=== PATIENT | female | born 1995 | race Caucasian/White ===

== ENCOUNTER 2016-12-02 10:46 | Emergency (ER) | payer BC, MEDICAID ==
--- OUTSIDE RECORDS SUMMARY | 2016-12-02 11:40 | XMS REPORT | Continuity of Care Document ---
:1995 Author Organization [employer] [place] [address] Care Team Providers Name Role Phone Marilia Whalen Primary Care Provider [phone] Source Comments This disclosure is being made pursuant to the [email or web address] program and maynot contain all information available regarding this patient.[employer] Active Allergies and Adverse Reactions No Known Allergies Current Medications Be aware that medications may not be up to date as of this document. Alwaysverify current medications with the patient. Prescription Sig. Disp. Refills Start Date End Date Status phentermine 30 MG capsule Take 30 mg by mouth Active every morning. Etonogestrel (IMPLANON Inject into the Active SC) skin. 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 Respiratory Rate 12 07/30/2015 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
[2016-12-02 12:04] LABS: Hematocrit 41.4 % (37.0-47.0); Hemoglobin 13.8 gm/dL (12.5-16.0); Mean Cell Volume 85.7 fl (78-100); Mean Corpuscular Hemoglobin 28.6 pg (27-31); Mean Corpuscular Hgb Conc 33.3 g/dl (32-36); Mean Platelet Volume 10.7 fl (6.0-9.5); Neutrophil # 3.5 K/mm3 (1.3-6.0); Neutrophil % 56.7 % (42-75.0); Platelet Count 247 K/mm3 (150-450); Red Blood Count 4.83 M/mm3 (4.2-5.4); Red Cell Distribution Width 12.7 % (11.5-14.0); White Blood Count 6.2 K/mm3 (4.0-10.5)
[2016-12-02 12:16] LABS: Urine Bilirubin Negative (NEGATIVE); Urine Blood 25 /ul (NEGATIVE); Urine Ketone Negative (NEGATIVE); Urine Nitrite Negative (NEGATIVE); Urine Protein Negative (NEGATIVE); Urine Specific Gravity >=1.030 SP.GR. (1.005-1.010); Urine Urobilinogen Normal (NORMAL); Urine pH 5.5 pH (5.0-7.0)
[2016-12-02 12:25] LABS: Urine Appearance Clear; Urine Bacteria None Seen; Urine Color Yellow; Urine RBC 0-5 /hpf (0-5); Urine WBC None Seen /hpf (0-5)
--- NOTE | 2016-12-02 12:25 | ERNOTE ---
Medical Problem HPI - Narrative Date of Service: 12/02/16 - General Chief Complaint: General Assessment Time Seen by Provider: 12/02/16 11:17 Source: patient Exam Limitations: no limitations - Immun/Allergies/Home Medications Immunizations: IMMUNIZATION HX Immunizations Up to Date Yes History of Influenza Vaccine No Allergies/Adverse Reactions: Allergies No Known Drug Allergies Allergy (Verified 12/02/16 12:23) Home Medications: HOME MEDICATIONS NK [No Home Medication] 12/02/16 [Last Taken Unknown] - History of Present History Narrative: Pt. comes in with c/o rectal bleeding that started three days ago that only occurs when she has a BM. pt. states that she has had loose BMs since having her gallbladder out two years ago. Pt. then her period started two days ago which she had two weeks ago and is soaking a pad every two hours. Pt. denies any pain except for yesterday when she had a headache after she had a nose bleed for fifteen minutes. Pt. attempted to see her PCP this morning but was sent here as they felt she needed to go to the ER. Review of Systems - Review of Systems Constitutional: Present: no symptoms reported. Absent: weakness, fatigue, malaise EYE: Present: no symptoms reported ENT: Present: nasal drainage - bloody nose resolved at this time Respiratory: Present: no symptoms reported. Absent: shortness of breath, cough , wheezing Cardiology: Present: no symptoms reported. Absent: chest pain, palpitations, edema Gastrointestinal/Abdominal: Present: diarrhea, other - bloody stool. Absent: nausea, vomiting, abdominal pain Genitourinary: Present: discharge - bloody vaginal discharge Musculoskeletal: Present: no symptoms reported. Absent: back pain, joint pain Skin: Present: no symptoms reported. Absent: rash, change in color, change in hair/nails Neurological: Present: headache - resolved now. Absent: dizziness/light- headedness, numbness, tingling Hematologic/Lymphatic: Present: no symptoms reported. Absent: easy bruising, easy bleeding, swollen glands All Other Systems: All systems neg except as marked - Patient's Past Medical History Patient History - Medical: No pertinent hx Patient History - Cardiac/Respiratory: No pertinent hx Patient History - Cancer: No Hx of Cancer Patient History - Surgical Procedures: Cholecystectomy, Patient History - Other: None LMP (females 10-50): this week - Social History Living Situations: spouse Abuse History: No History of abuse Psych History: No pertinent hx Smoking Status: Never smoker Alcohol Use: none Drug Use: none - Immunizations Immunizations Up to Date: Yes History of Influenza Vaccine: No Physical Exam - Physical Exam General Appearance: Present: wd/wn, alert, no apparent distress Eye Exam: Normal inspection: bilateral, PERRL: bilateral, EOMI: bilateral Ears, Nose, Throat: Present: normal ENT inspection, normal pharynx Neck: Present: normal inspection, nontender. Absent: lymphadenopathy (R), lymphadenopathy (L) Respiratory: Present: no respiratory distress, normal breath sounds, no accessory muscle use, chest nontender, lungs clear Cardiovascular/Chest: Present: regular rate, rhythm, no murmur, normal peripheral pulses Gastrointestinal/Abdominal: Present: normal bowel sounds, nontender, nondistended, soft, no organomegaly Rectal Exam: Present: nontender, normal rectal tone, blood-streaked stool. Absent: heme negative stool, tenderness, fecal impaction, hemorrhoids Back Exam: Present: normal inspection, normal range of motion, no CVA tenderness , no vertebral tenderness Neurological Exam: Present: alert, oriented, normal mood/affect, no motor/ sensory deficits, back facer II-XII nml as tested, normal cerebellar test Skin Exam: Present: normal color, warm/dry. Absent: pallor, skin rash Pelvic Exam: Present: active bleeding - mild ED Progress - Date and Time Seen: Date and Time: 12/02/16 12:56 Discussed case with her PCP Dr Brown and we will stop the phentermine and metformin as the phentermine can cause bleeding and the metformin can cause worsening diarrhea. Nasrin Brown will follow and will perform more coagulation testing when she sees pt. later this week. 12/02/16 13:[address] Hewitt and he does not feel that pt. would benefit from any colonoscopy or tagged red blood cell study at this time. - Results and Orders Patient's Lab Results:: I have reviewed the patient's lab results. - Vital Signs Patient's Vital Signs:: I have reviewed the patient's vital signs. Vital Signs: Vital Signs 12/02/16 12/02/16 10:49 11:22 Temperature 36.4 C L Pulse Rate 104 H 72 Respiratory 16 12 Rate Blood Pressure 146/105 134/75 O2 Sat by Pulse 98 96 Oximetry - Progress/Reassessment Chief Complaint: General Assessment Departure - Departure Clinical Impression: Unexplained bleeding Medication reaction Qualifiers: Encounter type: initial encounter Qualified Code(s): T88.7XXA - Unspecified adverse effect of drug or medicament, initial encounter Disposition: Home self-care Condition: Good Instructions: Basics of Medicine Management, Abnormal Uterine Bleeding, Bloody Diarrhea, Nosebleed, [id number] Additional Instructions: Please follow up with primary provider in 2-3 days we will schedule for further testing. Please stop phentermine and metformin. Referrals: Nasrin Brown, DO [Primary Care Provider] -
[2016-12-02 12:29] LABS: Prothrombin Time (Patient) 10.6 Seconds (9.4-11.4)
[2016-12-02 12:30] LABS: Albumin * 4.1 gm/dl (3.4-5.0); BUN/Creatinine Ratio 14.3 (9.0-21.6); Bilirubin, Total 0.6 mg/dL (0.0-1.1); Ca. Corrected For Albumin 8.4 mg/dL (8.4-10.2); Calcium * 8.8 mg/dL (7.9-10.9); Carbon Dioxide 26.8 mmol/L (24-32.6); Potassium 3.8 mmol/L (3.4-4.6); Total Protein 7.2 gm/dL (6.2-8.2)
[2016-12-02 12:31] LABS: INR 1.02 INR (0.90-1.10); Partial Thrombolplastin Time 25.7 Seconds (24-32)
[2016-12-02 13:49] VITALS: BP 127/70
== END 2016-12-02 13:54 | disposition home or self-care (01) ==
LOC: ER 10:46
PROC: 0T9B7ZZ Drainage of Bladder, Via Natural or Artificial Opening (ICD-10-PCS; principal; 2016-12-02)
DX: R58 Hemorrhage, not elsewhere classified (principal); T88.7XXA Unspecified adverse effect of drug or medicament, initial encounter

== ENCOUNTER 2017-07-10 12:01 | Day surgery (SDC) | payer BC ==
[~2017-07-10 12:01] MED LIST: RINGER'S SOLUTION,LACTATED 1,000 ML IV PRN
[2017-07-10] MEDS ORDERED: RINGER'S SOLUTION,LACTATED 1,000 ML IV ONE ×2 (14:01→14:30)
--- NOTE | 2017-07-10 14:55 | OR ---
Operative Report - Dictated Report Narrative: Date: 07/10/2017 Preoperative diagnosis: 6 month history of rectal bleeding Postoperative diagnosis: Polyp at 20 cm Procedure: Total colonoscopy with biopsy Staff surgeon: Db Haq MD Anesthesia: MAC per FEED BLENDER EBL: None Specimens: Polyp at 20 cm Description After informed consent and appropriate sedation the patient was placed in the left lateral decubitus position. Flexible fiberoptic video colonoscope was introduced and advanced under direct vision without difficulty to the cecum. The usual landmarks were identified. Preparation was fair but good views were obtained. The findings were of a normal cecum, ascending colon, hepatic flexure, transverse colon, splenic flexure, descending colon, sigmoid colon. There is a 5 mm small sessile polyp at 20 cm in the rectum that was biopsied with cold forceps and then destroyed with electrocautery. The remainder of the rectum and retroflexed appeared normal. The mucosal collar, vasculature, and texture were normal throughout. No suspicious masses were seen. The patient tolerated the procedure well without apparent complications and was discharged from the endoscopy suite in stable condition.
[2017-07-10 15:41] VITALS: BP 134/59
== END 2017-07-10 12:02 | disposition home or self-care (01) ==
LOC: AMB 12:01
PROVIDERS: ATTEND Specialist
PROC: 0DBN8ZX Excision of Sigmoid Colon, Via Natural or Artificial Opening Endoscopic, Diagnostic (ICD-10-PCS; principal; 2017-07-10)
DX: K63.5 Polyp of colon (principal); K62.5 Hemorrhage of anus and rectum
CPT/HCPCS: 88305